=== PATIENT | male | born 1950 | race Hispanic/Latino ===

== ENCOUNTER → 2017-08-31 | Outpatient (CLI) | payer MEDICARE ==
[~2017-08-31] MED LIST: ACAR100T2 PO; ASPI-1181 PO; CIPR-278 PO; DILT300C25 PO; GLIP10TA9 PO; LINA5TAB PO; LOSA50TA37 PO; PRAS10TA6 PO; SIMV10TA6 PO
== END | disposition home or self-care (01) ==
LOC: SHCH 10:10
PROVIDERS: ATTEND Internal Medicine Cardiovascular Disease
DX: I35.0 Nonrheumatic aortic (valve) stenosis (principal)
CPT/HCPCS: 93306